=== PATIENT | female | born 1975 | race Caucasian/White ===

== ENCOUNTER 2020-10-08 13:08 | Emergency (ER) | payer BC ==
[2020-10-08] MEDS ORDERED: HYDROmorphone 1 MG/ML Syringe IM ONE (13:48)
--- NOTE | 2020-10-08 13:57 | EDM.PDOC ---
ED HPI GENERAL MEDICAL PROBLEM - General Chief Complaint: Lower Extremity Injury/Pain Stated Complaint: RT KNEE PAIN Time Seen by Provider: 10/08/20 13:20 Source of Information: Reports: Patient History Limitations: Reports: No Limitations - History of Present Illness INITIAL COMMENTS - FREE TEXT/NARRATIVE: 42-year-old female presents the emergency department today with complaints of right medial knee pain. 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 She states she ambulates most of the day and had been doing fine. She states Tuesday, 4 days ago, she got home from work and felt well. However she woke up Tuesday morning, 3 days ago, and states she had severe right medial knee pain. She states that she initially tried using heat and taking a combination of Aleve and acetaminophen and this did not seem to help. She states that she has tried to keep it elevated over the past 2 days, continued to use heat, and taking Aleve and acetaminophen but it has not helped. She states that she is able to ambulate however this does cause her to have severe pain and she notices a popping in her right medial knee with every step she takes. She denies any history of injury to the knee. She denies any autoimmune disorders. She denies any fever, chills, nausea, vomiting or diarrhea. She denies any cough, sore throat, shortness of breath or respiratory issues. She states she is otherwise healthy and only takes a multivitamin and vitamin D daily. She does admit to vaping. Treatments SCENIC DESIGNER: Reports: Acetaminophen, NSAIDS Right Knee Pain Score (Numeric/FACES): 8 - Related Data Allergies Allergy/AdvReac Type Severity Reaction Status Date / Time methylprednisolone Allergy Anaphylactic Verified 10/08/20 13:20 Shock Home Meds: Home Meds Multivitamin [Multivitamins] 1 tab-cap PO DAILY 10/08/20 [History] Past Medical History HEENT History: Reports: Impaired Vision Cardiovascular History: Reports: None Respiratory History: Reports: None Gastrointestinal History: Reports: None Genitourinary History: Reports: None CAR MOVER History: Reports: Other (See Below) Other CAR MOVER History: tubal ligation and right ovary removed Musculoskeletal History: Reports: None Neurological History: Reports: None Psychiatric History: Reports: None Endocrine/Metabolic History: Reports: Obesity/BMI 30+ Hematologic History: Reports: None Immunologic History: Reports: None Oncologic (Cancer) History: Reports: None Dermatologic History: Reports: None - Infectious Disease History Infectious Disease History: Reports: Chicken Pox, Influenza - Past Surgical History HEENT Surgical History: Reports: Oral Surgery Other Female Surgeries/Procedures: "Right tube and ovary gone" Social & Family History - Family History Family Medical History: No Pertinent Family History Cardiac: Reports: [place] Respiratory: Reports: Other (See Below) Other Respiratory Family Hisory: pulmonary failure : Reports: Renal Disease/Insufficiency Endocrine/Metabolic: Reports: Diabetes, type II - Caffeine Use Caffeine Use: Reports: Soda - Recreational Drug Use Recreational Drug Use: No Review of Systems - Review of Systems Review Of Systems: Comprehensive ROS is negative, except as noted in HPI. ED EXAM, GENERAL - Physical Exam Exam: See Below Exam Limited By: No Limitations General Appearance: Alert, WD/WN, No Apparent Distress Ears: Normal External Exam, Hearing Grossly Normal Nose: Normal Inspection Throat/Mouth: Normal Inspection, Normal Lips, Normal Voice, No Airway Compromise Head: Atraumatic Neck: Normal Inspection, Supple Respiratory/Chest: No Respiratory Distress, No Accessory Muscle Use Cardiovascular: Normal Peripheral Pulses, Regular Rate, Rhythm, No Edema GI/Abdominal: No Distention (Female) Exam: Deferred Rectal (Female) Exam: Deferred Back Exam: Normal Inspection Extremities: Normal Inspection, Normal Range of Motion, Non-Tender (Medial aspect of anterior border of patella), No Pedal Edema, Normal Capillary Refill Neurological: Alert, Oriented, Normal Cognition Psychiatric: Normal Affect, Normal Mood Skin Exam: Warm, Dry, Intact, Normal Color, No Rash Lymphatic: No Adenopathy Course - Vital Signs Text/Narrative:: As stated above, patient presents with 3-day history of right knee pain. States she has tried conservative measures of the past few days however pain has become progressively worse and ambulation has become difficult. Upon assessment, there is no redness or warmth noted to the knee. Patient reports swelling to the medial aspect of the knee however do not appreciate this. Passive range of motion does not elicit pain on flexion or extension. However, patient did ap preciate pain to the medial aspect of the patella of the right knee at the area of the quadriceps tendon. There is no popping or cracking noted with passive range of motion. I have ordered for the patient to have a 4 view of the right knee. We will give her a shot of Dilaudid IM for the pain as she states nothing has seemed to help. Last Recorded V/S: Last Vital Signs Temp 96.7 F L 10/08/20 13:24 Pulse 76 10/08/20 14:40 Resp 16 10/08/20 14:40 BP 137/100 H 10/08/20 14:40 Pulse Ox 98 10/08/20 14:40 - Orders/Labs/Meds Meds: Medications Discontinued Medications Generic Name Dose Route Start Last Admin Trade Name Axel PRN Reason Stop Dose Admin Hydromorphone HCl 1 mg 10/08/20 13:48 10/08/20 13:55 Hydromorphone 1 Mg/Ml Syringe IM 10/08/20 13:49 1 mg ONETIME ONE Administration - Re-Assessments/Exams Free Text/Narrative Re-Assessment/Exam: 10/08/20 15:13 X-ray right knee shows joint space narrowing on the medial aspect. Nothing acute is appreciated. Official radiologist report is pending. 10/08/20 16:15 Radiologist impression 4 views of the right knee: 1. Minimal medial joint space narrowing. 2. Nothing acute is otherwise seen. Departure - Departure Time of Disposition: 15:10 Disposition: Home, Self-Care 01 Condition: Good Clinical Impression: Right knee pain Qualifiers: Chronicity: acute Qualified Code(s): M25.561 - Pain in right knee - Discharge Information Instructions: Acute Knee Pain, Adult, [id number] Referrals: Caitlin Madrid NP [Primary Care Provider] - Forms: ED Department Discharge Additional Instructions: You were seen in the emergency department today with complaints of right knee pain that started on Tuesday. X-ray of the right knee was completed which did show joint space narrowing on the medial aspect of your knee. This is likely the cause of the discomfort. Treatment for this is anti-inflammatory medication. Recommend that for the next 48 hours you take Tylenol 650 mg alternating every 4 hours with ibuprofen 600 mg. Do not exceed more than 4000 mg of Tylenol in 24 hours or 3200 mg of ibuprofen in 24 hours. Rest. Elevate the extremity as much as possible. Use ice to the area 30 minutes at a time every 3 hours while awake. Do not use heat as this causes more inflammation and discomfort. Recommend that you follow-up with your primary care provider in about a week if it is not better as you may need MRI. Sepsis Event Note (ED) - Focused Exam Vital Signs: Vital Signs Temp Pulse Resp BP Pulse Ox 10/08/20 14:40 76 16 137/100 H 98 10/08/20 13:24 96.7 F L 93 18 190/104 H 98
[2020-10-08 14:41] VITALS: BP 137/100; PULSE 76
--- NOTE | 2020-10-08 15:27 | CR ---
Right knee: 4 views of the right knee were obtained. Comparison: No prior right knee study is available. Minimal medial joint space narrowing is seen. Lateral joint space is preserved. No joint effusion is seen. No fracture or other bony abnormality is appreciated. Impression: 1. Minimal medial joint space narrowing. 2. Nothing acute is otherwise seen. Diagnostic code #2
== END 2020-10-08 15:35 | disposition home or self-care (01) ==
LOC: JD.ED 13:08
DX: M25.561 Pain in right knee (principal); E66.9 Obesity, unspecified; Z68.38 Body mass index [BMI] 38.0-38.9, adult; Z88.8 Allergy status to other drugs, medicaments and biological substances
CPT/HCPCS: 73564; 96372; 99283; J1170

== ENCOUNTER 2021-04-23 11:07 | Emergency (ER) | payer BC ==
[2021-04-23] MEDS ORDERED: Aspirin 81 MG Tab.Chew PO ONE (12:01)
[2021-04-23] MEDS ORDERED: Ondansetron 4 MG/2 ML SDV IVPUSH ONE (12:01)
[2021-04-23 14:40] VITALS: BP 101/71; PULSE 78
== END 2021-04-23 16:10 | disposition home or self-care (01) ==
LOC: JD.ED 11:07
DX: R07.89 Other chest pain (principal); E66.9 Obesity, unspecified; Z68.39 Body mass index [BMI] 39.0-39.9, adult; Z88.8 Allergy status to other drugs, medicaments and biological substances
CPT/HCPCS: 36415; 71045; 80053; 83880; 84484; 85025; 85610; 85730; 93005; 96374; 99285; A9270; J2405; 93010

== ENCOUNTER 2021-11-27 21:30 | Emergency (ER) | payer BC ==
[2021-11-27 23:31] VITALS: BP 145/78; PULSE 78
== END 2021-11-27 23:26 | disposition home or self-care (01) ==
LOC: JD.ED 21:30
DX: F10.10 Alcohol abuse, uncomplicated (principal); T48.4X5A Adverse effect of expectorants, initial encounter; E66.9 Obesity, unspecified; Z88.8 Allergy status to other drugs, medicaments and biological substances; Z79.899 Other long term (current) drug therapy; Z86.16 Personal history of COVID-19
CPT/HCPCS: 99282; 99284

== ENCOUNTER 2023-03-13 16:35 | Emergency (ER) | payer SELFPAY ==
[2023-03-13] MEDS ORDERED: Ibuprofen 600 MG Tab PO ONE (17:27)
[2023-03-13] MEDS ORDERED: Acetaminophen 325 MG Tab PO ONE (17:28)
[2023-03-13 17:54] VITALS: BP 162/68; PULSE 78
== END 2023-03-13 17:50 | disposition home or self-care (01) ==
LOC: JD.ED 16:35
DX: S93.601A Unspecified sprain of right foot, initial encounter (principal); E66.9 Obesity, unspecified; Z86.16 Personal history of COVID-19; Z79.899 Other long term (current) drug therapy; Z88.8 Allergy status to other drugs, medicaments and biological substances; X58.XXXA Exposure to other specified factors, initial encounter
CPT/HCPCS: 73610; 73630; 99283; A9270